=== PATIENT | female | born 1970 | race Caucasian/White ===

== ENCOUNTER → 2018-04-21 | Outpatient (CLI) | payer BC | LOC: MC.RAD 07:07 | DX: Z12.31 Encounter for screening mammogram for malignant neoplasm of breast (principal) ==

== ENCOUNTER → 2019-09-09 | Outpatient (CLI) | payer BC | LOC: MC.RAD 07:38 | DX: Z12.31 Encounter for screening mammogram for malignant neoplasm of breast (principal) ==

== ENCOUNTER → 2020-09-12 | Outpatient (CLI) | payer BC | LOC: MC.RAD 07:30 | DX: Z12.31 Encounter for screening mammogram for malignant neoplasm of breast (principal) ==

== ENCOUNTER → 2022-02-01 | Outpatient (CLI) | payer BC | LOC: MC.RAD 07:21 | DX: Z12.31 Encounter for screening mammogram for malignant neoplasm of breast (principal); N64.89 Other specified disorders of breast ==

== ENCOUNTER → 2022-02-08 | Outpatient (CLI) | payer BC | LOC: MC.RAD 07:36 | DX: N64.89 Other specified disorders of breast (principal) ==

== ENCOUNTER → 2024-03-08 | Outpatient (CLI) | payer BC | LOC: MC.RAD 06:00 | DX: Z12.31 Encounter for screening mammogram for malignant neoplasm of breast (principal) ==